=== PATIENT | female | born 1965 | race Asian ===

== ENCOUNTER 2025-05-18 09:17 | Emergency (ER) | payer OTHER ==
[~2025-05-18] VITALS: Ht 144.8 cm; Wt 55.3 kg
[2025-05-18 10:52] LABS: BASOPHILS ABSOLUTE AUTO 0.03 K/mm3 (0.00-0.23); BASOPHILS PERCENT AUTO 0 % (0-2); EOSINOPHILS ABSOLUTE AUTO 0.12 K/mm3 (0.00-0.68); EOSINOPHILS PERCENT AUTO 1 % (0-6); Hematocrit 42.2 % (33.0-51.0); Hemoglobin 15.3 g/dL (11.5-16.0); IMMATURE GRAN ABSOLUTE AUTO 0.05 K/mm3 (0.00-0.10); IMMATURE GRAN PERCENT AUTO 0 % (0-1); LYMPHOCYTES ABSOLUTE AUTO 1.60 K/mm3 (0.84-5.20); LYMPHOCYTES PERCENT AUTO 11 % (21-46); MONOCYTES ABSOLUTE AUTO 1.40 K/mm3 (0.16-1.47); MONOCYTES PERCENT AUTO 10 % (4-13); Mean Corpuscular HGB Conc 36.3 g/dL (31.5-36.5); Mean Corpuscular Volume 91 fL (80-100); NEUTROPHILS ABSOLUTE AUTO 11.06 K/mm3 (1.96-9.15); NEUTROPHILS PERCENT AUTO 78 % (41-73); NRBC ABSOLUTE 0.00 K/mm3 (0.00-0.02); NRBC Auto 0.0 /100 WBC (0.0-0.2); Platelet Count 150 K/mm3 (150-400); RDW Coefficient Variation 12.5 % (11.7-14.2); RDW Standard Deviation 41.8 fL (35.1-46.3)
[2025-05-18 11:16] LABS: Alanine Aminotransfer (ALT/SGP 27.0 U/L (12-78); Albumin, Blood 4.0 g/dL (3.4-5.0); Albumin/Globulin Ratio 1.0 (0.8-1.8); Anion Gap 11.0 mmol/L (3-11); Aspartate Aminotrans (AST/SGOT 27.0 U/L (12-37); Bilirubin, Total 1.5 mg/dL (0.1-1.0); Blood Urea Nitrogen 12.0 mg/dL (8-24); CO2, Blood 25.0 mmol/L (21-32); Calcium, Blood 8.8 mg/dL (8.5-10.1); Chloride, Blood 104.0 mmol/L (98-108); Creatinine, Blood 0.86 mg/dL (0.40-1.00); Globulin, Blood 4.2 g/dL (2.2-4.0); Glucose, Blood 105.0 mg/dL (70-99); Potassium, Blood 3.7 mmol/L (3.5-5.5); Sodium, Blood 136.0 mmol/L (136-145); Total Protein, Blood 8.2 g/dL (6.4-8.2)
[2025-05-18] MEDS ORDERED: Ketorolac Tromethamine 15mg Vial IV ONE (13:00)
[2025-05-18 15:00] VITALS: BP 111/78
== END 2025-05-18 15:15 | disposition home or self-care (01) ==
LOC: ER 09:17
PROVIDERS: Student in an Organized Health Care Education/Training Program
DX: R07.89 Other chest pain (principal); Z88.5 Allergy status to narcotic agent
CPT/HCPCS: 71046; 71260; 80053; 83690; 85025; 93005; 93010; 99285-25; A9270; Q9967

== ENCOUNTER 2025-05-20 20:30 | Inpatient (IN) | payer OTHER ==
[~2025-05-20] VITALS: Ht 144.8 cm; Wt 57.1 kg
[2025-05-20 21:24] LABS: BASOPHILS ABSOLUTE AUTO 0.04 K/mm3 (0.00-0.23); BASOPHILS PERCENT AUTO 0 % (0-2); EOSINOPHILS ABSOLUTE AUTO 0.10 K/mm3 (0.00-0.68); EOSINOPHILS PERCENT AUTO 1 % (0-6); Hematocrit 34.2 % (33.0-51.0); Hemoglobin 12.5 g/dL (11.5-16.0); IMMATURE GRAN ABSOLUTE AUTO 0.70 K/mm3 (0.00-0.10); IMMATURE GRAN PERCENT AUTO 4 % (0-1); LYMPHOCYTES ABSOLUTE AUTO 1.50 K/mm3 (0.84-5.20); LYMPHOCYTES PERCENT AUTO 8 % (21-46); MONOCYTES ABSOLUTE AUTO 1.01 K/mm3 (0.16-1.47); MONOCYTES PERCENT AUTO 6 % (4-13); Mean Corpuscular HGB Conc 36.5 g/dL (31.5-36.5); Mean Corpuscular Volume 91 fL (80-100); NEUTROPHILS ABSOLUTE AUTO 15.03 K/mm3 (1.96-9.15); NEUTROPHILS PERCENT AUTO 82 % (41-73); NRBC ABSOLUTE 0.00 K/mm3 (0.00-0.02); NRBC Auto 0.0 /100 WBC (0.0-0.2); Platelet Count 130 K/mm3 (150-400); RDW Coefficient Variation 12.4 % (11.7-14.2); RDW Standard Deviation 41.4 fL (35.1-46.3)
[2025-05-20 21:47] LABS: Alanine Aminotransfer (ALT/SGP 90.0 U/L (12-78); Albumin, Blood 2.7 g/dL (3.4-5.0); Albumin/Globulin Ratio 0.7 (0.8-1.8); Anion Gap 10.0 mmol/L (3-11); Aspartate Aminotrans (AST/SGOT 86.0 U/L (12-37); Bilirubin, Total 2.7 mg/dL (0.1-1.0); Blood Urea Nitrogen 11.0 mg/dL (8-24); CO2, Blood 24.0 mmol/L (21-32); Calcium, Blood 8.3 mg/dL (8.5-10.1); Chloride, Blood 99.0 mmol/L (98-108); Creatinine, Blood 0.81 mg/dL (0.40-1.00); Globulin, Blood 4.0 g/dL (2.2-4.0); Glucose, Blood 102.0 mg/dL (70-99); Potassium, Blood 3.4 mmol/L (3.5-5.5); Sodium, Blood 130.0 mmol/L (136-145); Total Protein, Blood 6.7 g/dL (6.4-8.2)
[2025-05-20] MEDS ORDERED: NS 1,000 ML IV SCH (21:55)
[2025-05-20] MEDS ORDERED: Piperacillin/Tazobactam Sod 4.5 GM in NS 100 ML IV ONE (21:55)
[2025-05-20] MEDS ORDERED: Vancomycin (Pharmacy Consult) IV PRN (21:55)
[2025-05-20 21:59] LABS: Source, Urine Voided
[2025-05-20 22:16] LABS: Bilirubin, Urine Neg (Neg); Glucose Qualitative, Urine Neg (Neg); Ketones, Urine 2+ (Neg); Leukocyte Esterase, Urine 1+ (Neg); Protein, Urine 2+ (Neg); Specific Gravity, Urine 1.010 (1.003-1.022); Urobilinogen, Urine NORM (Normal)
[2025-05-20] MEDS ORDERED: FentaNYL Citrate 50 MCG/ML 2 ML Injection IV ONE (22:20)
[2025-05-20 22:37] LABS: Color, Urine Yellow (P-Yellow)
[2025-05-20 22:38] LABS: Red Blood Cells, Urine 0-2 /hpf (0-2)
[2025-05-21 01:41] LABS: Hematocrit 32.5 % (33.0-51.0); Hemoglobin 11.9 g/dL (11.5-16.0)
[2025-05-21] MEDS ORDERED: Ondansetron HCl 2 MG / ML 2ML Vial IV PRN (01:45)
[2025-05-21] MEDS ORDERED: Naloxone HCl 0.4MG / ML 1ML Vial IV PRN (01:45)
[2025-05-21] MEDS ORDERED: FentaNYL Citrate 50 MCG/ML 2 ML Injection IV PRN (01:45)
[2025-05-21] MEDS ORDERED: FLU VACC TS2025-26(6MOS UP)/PF 45 MCG/0.5 ML SYRINGE IM SCH (01:45)
[2025-05-21] MEDS ORDERED: Vancomycin (Pharmacy Consult) IV SCH (01:45)
[2025-05-21 02:06] LABS: Prothrombin Time Results 12.8 Sec (9.7-11.5)
[2025-05-21 04:20] VITALS: BP 116/85
[2025-05-21 05:13] LABS: Hematocrit 35.7 % (33.0-51.0); Hemoglobin 12.8 g/dL (11.5-16.0); Mean Corpuscular HGB Conc 35.9 g/dL (31.5-36.5); Mean Corpuscular Volume 92 fL (80-100); NRBC ABSOLUTE 0.00 K/mm3 (0.00-0.02); NRBC Auto 0.0 /100 WBC (0.0-0.2); Platelet Count 131 K/mm3 (150-400); RDW Coefficient Variation 12.6 % (11.7-14.2); RDW Standard Deviation 42.0 fL (35.1-46.3)
[2025-05-21 05:40] LABS: BAND PERCENT MAN 19 % (0-8); BASOPHILS ABSOLUTE MAN 0.00 K/mm3 (0.00-0.23); BASOPHILS PERCENT MAN 0 % (0-2); EOSINOPHILS ABSOLUTE MAN 0.15 K/mm3 (0.00-0.68); EOSINOPHILS PERCENT MAN 1 % (0-6); LYMPHOCYTES ABSOLUTE MAN 0.31 K/mm3 (0.84-5.20); LYMPHOCYTES PERCENT MAN 2 % (21-46); MONOCYTES ABSOLUTE MAN 0.47 K/mm3 (0.16-1.47); MONOCYTES PERCENT MAN 3 % (4-13); MYELOCYTE ABSOLUTE MAN 0.15 K/mm3 (0.00-0.00); MYELOCYTE PERCENT MAN 1 % (0-0); NEUTROPHILS ABSOLUTE MAN 14.70 K/mm3 (1.96-9.15); SEG NEUTROPHILS PERCENT MAN 74 % (41-73)
[2025-05-21 05:43] LABS: Alanine Aminotransfer (ALT/SGP 99.0 U/L (12-78); Albumin, Blood 2.7 g/dL (3.4-5.0); Albumin/Globulin Ratio 0.6 (0.8-1.8); Anion Gap 11.0 mmol/L (3-11); Aspartate Aminotrans (AST/SGOT 89.0 U/L (12-37); Bilirubin, Total 2.9 mg/dL (0.1-1.0); Blood Urea Nitrogen 10.0 mg/dL (8-24); CO2, Blood 21.0 mmol/L (21-32); Calcium, Blood 8.3 mg/dL (8.5-10.1); Chloride, Blood 109.0 mmol/L (98-108); Creatinine, Blood 0.8 mg/dL (0.40-1.00); Globulin, Blood 4.2 g/dL (2.2-4.0); Glucose, Blood 100.0 mg/dL (70-99); Magnesium, Blood 2.1 mg/dL (1.6-2.4); Potassium, Blood 3.8 mmol/L (3.5-5.5); Sodium, Blood 137.0 mmol/L (136-145); Total Protein, Blood 6.9 g/dL (6.4-8.2)
[2025-05-21] MEDS ORDERED: Piperacillin/Tazobactam Sod 4.5 GM in NS 100 ML IV SCH (06:00)
--- NOTE | 2025-05-21 06:16 | NUR ---
SHIFT SUMMARY RECEIVED REPORT FROM KEY OPERATOR. PT TRANSFERRED TO UNIT AT APPROXIMATELY 0330. PT C/O ABD PAIN 09/04 UPON ARRIVAL. NO C/O CHEST PAIN OR PRESSURE. NO C/O SOB. SKIN ASSESSMENT COMPLETED WITH EMA DE JESUS. PT AOX4. SR ON TELE. SPO2 >92% ON RA. IV WITH POSITIVE BLOOD RETURN, FLUSHED WITH 10ML NS. FLUIDS RUNNING AT 100ML/HR. NO C/O PAIN AT IV SITE. MRI SCREENING FORM COMPLETED AND SENT. CALL LIGHT WITHIN REACH. PT ABLE TO MAKE ALL NEEDS KNOWN AND CALLS APPROPRIATELY FOR ASSISTANCE WHEN NEEDED. CHANTELL AU, AT BEDSIDE.
[2025-05-21 07:52] VITALS: BP 108/58
[2025-05-21] MEDS ORDERED: Lactobacil 2-S.Thermo-Bifido 1 1 Cap PO SCH (09:00)
[2025-05-21] MEDS ORDERED: Lidocaine 4% 1 Patch TOP PRN (10:10)
[2025-05-21 12:29] VITALS: BP 118/67
[2025-05-21 15:29] VITALS: BP 142/76
--- NOTE | 2025-05-21 18:10 | NUR ---
SHIFT SUMMARY PATIENT HAS BEEN AOX4 ALL SHIFT. SBP HAS BEEN STABLE 105-140 T/O SHIFT. HR HAS BEEN 90-110'S AND SINUS RHYTHM. O2 SATS >95% ON ROOM AIR. PATIENT IS A SBA TO THE BATHROOM. PREVIOUS REPORT OF BLOOD IN STOOL, HOWEVER NO BM ON THIS SHIFT. HAD A LIVER MRI DONE TODAY WITH RESULTS IN CHART. PATIENT WAS INITIALLY NPO, TALKED WITH PROVIDER AND CHANGED DIET ORDERS PER PROVIDER. DENIES CHEST PAIN/PRESSURE/SOB. TEMP HAS BEEN 99-100.8, PROVIDERS AWARE. RFA PIV IS PATENT AND INFUSING CURRENTLY. PLAN FOR CT SCAN TOMORROW WITH POSSIBLE PROCEDURE. PATIENT CAN DRINK WATER AND EAT LIGHLTY IN MORNING PER PROVIDER. PATIENT RESTING COMFORTABLY IN BED IN LOWEST POSITION, CALL LIGHT WITH IN REACH. FAMILY AT BEDSIDE.
[2025-05-21 19:49] VITALS: BP 106/64
[2025-05-22] VITALS (7 sets, daily range): BP systolic 105–128; BP diastolic 65–96
--- NOTE | 2025-05-22 06:41 | NUR ---
NOC SHIFT SUMMARY PT A+OX4 ABLE TO MAKE NEEDS KNOWN, AT BEDSIDE. PT IS VERY KIND AND COOPERATIVE WITH CARE. SHE IS INDEPENT IN THE ROOM SINCE NO LONGER BEING HOOKED TO IV FLUIDS. VSS. DENIES CHEST PAIN OR PRESSURE. RA SATTING >90%, DENIES SOB. STATES ABDOMEN PAIN HAS MUCH IMPROVED. SHE IS CURRENTLY FULL LIQUID DIET. NO ACUTE CHANGES OVER NIGHT. CARE CONTINUES, WILL REPORT TO ONCOMING RN.
[2025-05-22 10:46] LABS: Vancomycin, Trough 8.8 ug/mL (5.0-10.0)
[2025-05-22 11:13] LABS: BASOPHILS ABSOLUTE AUTO 0.04 K/mm3 (0.00-0.23); BASOPHILS PERCENT AUTO 0 % (0-2); EOSINOPHILS ABSOLUTE AUTO 0.05 K/mm3 (0.00-0.68); EOSINOPHILS PERCENT AUTO 0 % (0-6); Hematocrit 35.7 % (33.0-51.0); Hemoglobin 12.9 g/dL (11.5-16.0); IMMATURE GRAN ABSOLUTE AUTO 0.12 K/mm3 (0.00-0.10); IMMATURE GRAN PERCENT AUTO 1 % (0-1); LYMPHOCYTES ABSOLUTE AUTO 0.85 K/mm3 (0.84-5.20); LYMPHOCYTES PERCENT AUTO 6 % (21-46); MONOCYTES ABSOLUTE AUTO 1.53 K/mm3 (0.16-1.47); MONOCYTES PERCENT AUTO 10 % (4-13); Mean Corpuscular HGB Conc 36.1 g/dL (31.5-36.5); Mean Corpuscular Volume 91 fL (80-100); NEUTROPHILS ABSOLUTE AUTO 12.79 K/mm3 (1.96-9.15); NEUTROPHILS PERCENT AUTO 83 % (41-73); NRBC ABSOLUTE 0.00 K/mm3 (0.00-0.02); NRBC Auto 0.0 /100 WBC (0.0-0.2); Platelet Count 169 K/mm3 (150-400); RDW Coefficient Variation 13.0 % (11.7-14.2); RDW Standard Deviation 43.1 fL (35.1-46.3)
[2025-05-22 11:44] LABS: Alanine Aminotransfer (ALT/SGP 110.0 U/L (12-78); Albumin, Blood 2.6 g/dL (3.4-5.0); Albumin/Globulin Ratio 0.6 (0.8-1.8); Anion Gap 9.0 mmol/L (3-11); Aspartate Aminotrans (AST/SGOT 95.0 U/L (12-37); Bilirubin, Total 1.9 mg/dL (0.1-1.0); Blood Urea Nitrogen 10.0 mg/dL (8-24); CO2, Blood 21.0 mmol/L (21-32); Calcium, Blood 8.2 mg/dL (8.5-10.1); Chloride, Blood 110.0 mmol/L (98-108); Creatinine, Blood 0.83 mg/dL (0.40-1.00); Globulin, Blood 4.2 g/dL (2.2-4.0); Glucose, Blood 110.0 mg/dL (70-99); Potassium, Blood 3.3 mmol/L (3.5-5.5); Sodium, Blood 137.0 mmol/L (136-145); Total Protein, Blood 6.8 g/dL (6.4-8.2)
[2025-05-22] MEDS ORDERED: NS KCL 40 mEq 1,000 ML IV SCH (12:10)
[2025-05-22] MEDS ORDERED: NS 1,000 ML IV SCH (13:10)
--- NOTE | 2025-05-22 13:36 | NUR ---
ASSUMPTION OF CARE PATIENT AWAKE AND AOX4. SBP 100'S-110'S AND STABLE. MAP >65. HR 90-100 SR. O2 SAT >95% ON ROOM AIR. TEMP HAS BEEN BETWEEN 98-103. UPDATED PROVIDER. MEDICATED PER EMAR. PATIENT IS SBA TO BATHROOM DUE TO PAIN, SHE MOVES INDEPENDANTLY IN BED. NO BM NOTED ON SHIFT. NO RECTAL BLEEDING NOTED ON SHIFT. PATIENT DENIES SOB/CHEST PAIN/PRESSURE. PLAN FOR INERVENTIONAL RADIOLOGY LIVER PROCEDURE TODAY. PATIENT CURRENTLY NPO FOR PROCEDURE. PIV PATENT. PATIENT CURRENTLY IN SHOWER PER REQUEST.
[2025-05-22] MEDS ORDERED: NS 0 ML IV ONE ×2 (14:08→14:22)
[2025-05-22] MEDS ORDERED: Heparin Sodium 1000 Units/ML 10ML MDV ONE (14:09)
[2025-05-22] MEDS ORDERED: FentaNYL Citrate 50 MCG/ML 2 ML Injection ONE (14:22)
[2025-05-22] MEDS ORDERED: Midazolam HCl 1MG / ML 2ML Vial ONE (14:22)
--- NOTE | 2025-05-22 15:07 | NUR ---
Pt returned from the heart center at 1445. is at the bedside. Pt states she has some mild pain in her abdomen, and is also very hungry. States the abdominal ultrasound during the procedure increased her pain. IV fluids NS and KCl started at this time, per orders.
[2025-05-22 16:12] LABS: HEPATITIS A ANTIBODY, IGM Negative (Negative); HEPATITIS C AB CIA INTERP Negative (Negative); HEPATITIS C ANTIBODY CIA INDEX 0.03 IV
--- NOTE | 2025-05-22 16:56 | NUR ---
SHIFT SUMMARY PATIENT'S TEMP 98-99 DEGREES. PATIENT BACK IN ROOM, RESTING IN BED IN LOWEST POSITION WITH CALL LIGHT IN REACH. PATIENT HAS BEEN UPDATED ON CONDITION/AVAILABLE RESULTS SO FAR. SHE HAS NO FURTHER QUESTIONS. NO OTHER ACUTE CHANGES SINCE ASSMPTION OF CARE NOTE.
--- NOTE | 2025-05-22 20:00 | NUR ---
ASSUMED CARE OF PATIENT AT 1900. PATIENT A/O X 4, SPEAKING IN COMPELTE SENTENCES AND OBEYS COMMANDS. SINUS TACH 110s, BP STABLE. SATS >95% ON ROOM AIR. PATIENT BECAME ANXIOUS AFTER REPORT, STARTED HYPERVENTILATING AND COMPLAINING OF SOB. PATIENT REPORTS USING INHALER AT HOME BUT HAS NOT USED IT SINCE [place]MIS[place]. SATS MAINTAINED >98%, LUNG SOUNDS CLEAR T/O. PATIENT HYPERVENTILATION IMPROVED AFTER ENCOURAGING SLOW, DEEP BREATHS. CALL PLACED TO MD CARDONA, ORDERS PLACED FOR RESCUE INHALER AND ATARAX. PATIENT IS SBA TO BATHROOM FOR LINE MANAGEMENT, REPOSITIONS INDEPENDENTLY IN BED. PATIENT RESTING COMFORTABLY IN ROOM WITH FAMILY AT BEDSIDE. BED LOCKED IN LOWEST POSITION, CALL LIGHT WITHIN REACH.
[2025-05-22] MEDS ORDERED: Albuterol 2.5 MG/3 ML VIAL INH PRN (21:15)
[2025-05-22] MEDS ORDERED: Albuterol HFA200 ACT/6.7 GM INH INH PRN (21:20)
[2025-05-23] VITALS (7 sets, daily range): BP systolic 110–148; BP diastolic 69–83
--- NOTE | 2025-05-23 06:04 | NUR ---
SHIFT SUMMARY SEE PREVIOUS NOTE PATIENT REMAINS A/O X 4 T/O SHIFT. PATIENT USES CALL LIGHT APPROPRIATELY AND IS COOPERATIVE WITH CARE. SHE HAS BEEN NSR/ST, HR 90-110s, DENIES CHEST PAIN OR PRESSURE. ALL OTHER VSS. PATIENT DENIES RECURRENCE OF SOB OR ANXIETY SINCE INITIAL EVENT. PATIENT RESTING COMFORTABLY IN ROOM. BED LOCKED IN LOWEST POSITION AND CALL LIGHT IN REACH.
[2025-05-23 09:55] LABS: BASOPHILS ABSOLUTE AUTO 0.02 K/mm3 (0.00-0.23); BASOPHILS PERCENT AUTO 0 % (0-2); EOSINOPHILS ABSOLUTE AUTO 0.20 K/mm3 (0.00-0.68); EOSINOPHILS PERCENT AUTO 2 % (0-6); Hematocrit 29.4 % (33.0-51.0); Hemoglobin 10.6 g/dL (11.5-16.0); IMMATURE GRAN ABSOLUTE AUTO 0.21 K/mm3 (0.00-0.10); IMMATURE GRAN PERCENT AUTO 2 % (0-1); LYMPHOCYTES ABSOLUTE AUTO 0.96 K/mm3 (0.84-5.20); LYMPHOCYTES PERCENT AUTO 7 % (21-46); MONOCYTES ABSOLUTE AUTO 2.11 K/mm3 (0.16-1.47); MONOCYTES PERCENT AUTO 16 % (4-13); Mean Corpuscular HGB Conc 36.1 g/dL (31.5-36.5); Mean Corpuscular Volume 91 fL (80-100); NEUTROPHILS ABSOLUTE AUTO 10.15 K/mm3 (1.96-9.15); NEUTROPHILS PERCENT AUTO 74 % (41-73); NRBC ABSOLUTE 0.00 K/mm3 (0.00-0.02); NRBC Auto 0.0 /100 WBC (0.0-0.2); Platelet Count 160 K/mm3 (150-400); RDW Coefficient Variation 13.0 % (11.7-14.2); RDW Standard Deviation 43.0 fL (35.1-46.3)
--- NOTE | 2025-05-23 10:14 | NUR ---
ASSUMPTION OF CARE ASSUMED CARE OF PATIENT AT 0700 AFTER BEDSIDE SHIFT REPORT. PATIENT AWAKE AND AOX4. SBP 120'S MAP >65. HR SINUS 90-100'S. O2 SATS >95% ON RA. TEMP IS 98.8. PATIENT AMBULATES INDEPENDENTLY IN ROOM TO BATHROOM. NO BLOOD REPORTED IN STOOL OR URINE. RIGHT AC PIV IS PATENT. PATIENT REPORTS LESS PAIN IN ABDOMEN. PLAN FOR REPEAT LABS. IV ANTIBIOTICS FOR TODAY. PATIENT RESTING COMFORTABLY IN BED IN LOWEST POSITION, CALL LIGHT WITH IN REACH.
[2025-05-23 10:18] LABS: Alanine Aminotransfer (ALT/SGP 70.0 U/L (12-78); Albumin, Blood 1.9 g/dL (3.4-5.0); Albumin/Globulin Ratio 0.5 (0.8-1.8); Anion Gap 9.0 mmol/L (3-11); Aspartate Aminotrans (AST/SGOT 46.0 U/L (12-37); Bilirubin, Total 1.2 mg/dL (0.1-1.0); Blood Urea Nitrogen 8.0 mg/dL (8-24); CO2, Blood 20.0 mmol/L (21-32); Calcium, Blood 7.9 mg/dL (8.5-10.1); Chloride, Blood 117.0 mmol/L (98-108); Creatinine, Blood 0.71 mg/dL (0.40-1.00); Globulin, Blood 3.7 g/dL (2.2-4.0); Glucose, Blood 127.0 mg/dL (70-99); Potassium, Blood 3.5 mmol/L (3.5-5.5); Sodium, Blood 142.0 mmol/L (136-145); Total Protein, Blood 5.6 g/dL (6.4-8.2)
--- NOTE | 2025-05-23 18:08 | NUR ---
SHIFT SUMMARY. PATIENT'S TEMP INCREASED BRIEFLY. PROVIDER NOTIFIED. MEDICATED PER EMAR. PATIENT AND UP AND WALKING AROUND THE FLOOR TODAY WITH RN FOLLOWING CLOSE BY. PATIENT HAD BOUT OF ANXIOUSNESS, MEDICATED PER EMAR. NO OTHER ACUTE CHANGES SINCE ASSUMPTION OF CARE NOTE. PATIENT RESTING COMFORTABLY IN BED IN LOWEST POSITION WITH CALL LIGHT IN REACH AND FAMILY BEDSIDE.
[2025-05-24] VITALS (23 sets, daily range): BP systolic 100–169; BP diastolic 60–117
[2025-05-24 04:37] LABS: BASOPHILS ABSOLUTE AUTO 0.06 K/mm3 (0.00-0.23); BASOPHILS PERCENT AUTO 0 % (0-2); EOSINOPHILS ABSOLUTE AUTO 0.31 K/mm3 (0.00-0.68); EOSINOPHILS PERCENT AUTO 2 % (0-6); Hematocrit 28.6 % (33.0-51.0); Hemoglobin 10.4 g/dL (11.5-16.0); IMMATURE GRAN ABSOLUTE AUTO 0.34 K/mm3 (0.00-0.10); IMMATURE GRAN PERCENT AUTO 2 % (0-1); LYMPHOCYTES ABSOLUTE AUTO 1.50 K/mm3 (0.84-5.20); LYMPHOCYTES PERCENT AUTO 11 % (21-46); MONOCYTES ABSOLUTE AUTO 2.09 K/mm3 (0.16-1.47); MONOCYTES PERCENT AUTO 15 % (4-13); Mean Corpuscular HGB Conc 36.4 g/dL (31.5-36.5); Mean Corpuscular Volume 89 fL (80-100); NEUTROPHILS ABSOLUTE AUTO 9.91 K/mm3 (1.96-9.15); NEUTROPHILS PERCENT AUTO 70 % (41-73); NRBC ABSOLUTE 0.00 K/mm3 (0.00-0.02); NRBC Auto 0.0 /100 WBC (0.0-0.2); Platelet Count 177 K/mm3 (150-400); RDW Coefficient Variation 13.3 % (11.7-14.2); RDW Standard Deviation 44.1 fL (35.1-46.3)
[2025-05-24 05:08] LABS: Alanine Aminotransfer (ALT/SGP 53.0 U/L (12-78); Albumin, Blood 1.9 g/dL (3.4-5.0); Albumin/Globulin Ratio 0.5 (0.8-1.8); Anion Gap 10.0 mmol/L (3-11); Aspartate Aminotrans (AST/SGOT 29.0 U/L (12-37); Bilirubin, Total 0.9 mg/dL (0.1-1.0); Blood Urea Nitrogen 10.0 mg/dL (8-24); CO2, Blood 20.0 mmol/L (21-32); Calcium, Blood 8.3 mg/dL (8.5-10.1); Chloride, Blood 114.0 mmol/L (98-108); Creatinine, Blood 0.8 mg/dL (0.40-1.00); Globulin, Blood 4.0 g/dL (2.2-4.0); Glucose, Blood 94.0 mg/dL (70-99); Potassium, Blood 3.6 mmol/L (3.5-5.5); Sodium, Blood 140.0 mmol/L (136-145); Total Protein, Blood 5.9 g/dL (6.4-8.2)
--- NOTE | 2025-05-24 05:35 | NUR ---
SHIFT SUMMARY PT A&O X4, ANXIOUS AT TIMES, COOPERATIVE TO CARE. HR IN THE 70'S-110'S, SR. SH DENIES ANY CP/PRESSURE, NUMB/TINGLING, SBP STABLE. Sp02 >92% ON RA, SHE DENIES ANY SOB. OT INTERMITTENT ABD/BACK PAIN, MEDICATING PER EMAR. P DID HAVE ONE EPISODE T/O NIGHT WHEN SHE WAS HAVING 5/10 BACK PAIN AND BECAME ANXIOUS. PT RR IN THE MID 20'S, CHILLS/SHAKEY, PTS TEMP WAS 98.2 AT THIS TIME, MEDICATED PT PER EMAR. PT REMAINED AFEBRILE T/O NIGHT. MD AT BEDSIDE DURING THE NIGHT CHECKING IN ON PT. PT TO GET REPEAT IMAGINING IN A FEW DAYS AND DISCUSS PLAN OF CARE AT THAT TIME. PT RESTIN IN BED AT THIS TIME. CALL LIGHT IN REACH. WILL MONITORPT AND REPORT TO ONCOMING RN.
[2025-05-24 11:03] LABS: Stool Occult Blood Guaiac 1 Neg (Neg)
[2025-05-24 11:29] LABS: Hematocrit 30.8 % (33.0-51.0); Hemoglobin 11.2 g/dL (11.5-16.0)
[2025-05-24] MEDS ORDERED: Sod Ferric Gluc Complx/Sucrose 125 MG in NS 100 ML IV SCH (11:29)
[2025-05-24 11:48] LABS: Ferritin, Serum 830.0 ng/mL (8-252); Total Iron Binding Capacity 194.0 ug/dL (250-450)
[2025-05-24 12:13] LABS: Campylobacter Sp Not Detected (NOT DETECT); E. Coli O157 Not Detected (NOT DETECT); Enteroaggregative E. coli-EAEC Not Detected (NOT DETECT); Enteropathogenic E. coli-EPEC Not Detected (NOT DETECT); Enterotoxigenic E. coli-ETEC Not Detected (NOT DETECT); Salmonella Sp Not Detected (NOT DETECT); Shiga Toxin-prod E. coli-STEC Not Detected (NOT DETECT); Shigella/Enteroin E. coli-EIEC Not Detected (NOT DETECT); Vibrio Sp Not Detected (NOT DETECT)
[2025-05-24] MEDS ORDERED: OMEP20ER PO (16:27)
[2025-05-24] MEDS ORDERED: Milk Thistle175 M1 PO (16:27)
[2025-05-24] MEDS ORDERED: MULVITA PO (16:27)
[2025-05-24] MEDS ORDERED: TOCO1000 PO (16:28)
--- NOTE | 2025-05-24 18:28 | NUR ---
SHIFT SUMMARY PT ALERT, ORIENTED X4; CALM AND COOPERATIVE WITH CARE. PT UP IN CHAIR THIS EVENING. IND IN ROOM. THIS AM PT AND SPOUSE REPORTING BLOODY STOOL, RENALDO/DARK RED, CLOTS NOTED. PT NOTED TO BE DRINKING BEET JUICE FOR BREAKFAST. DISCUSSED WITH DR ROCHA AND DR POLLOCK, ORDERS FOR H&H, IRON PANEL, GUIAC AND GI PANEL; RESULTS DISCUSSED WITH DRs. PLAN FOR COLONOSCOPY THIS EVENING, STARTED BOWEL PREP AT APPROX [id number] COMPLETED AT 1430; PT MOST RECENT STOOL CLEAR YELLOW, NO FLECKS NOTED, DR POLLOCK AWARE, CURRENTLY NPO FOR SCOPE. TELE SINUS 80-100'S AT REST, 120-130'S WITH AMBULATION, BP ELEVATED THIS AM, TRENDING DOWN THIS EVENING. SPO2 >90% ON RA, BREATHING EVEN AND UNLABORED, LS CLEAR. ABD SOFT, NONTENDER, +BT. TRACE EDEMA NOTED BLE. PT REPORTING HEADACHE THIS AM, X1 TYLENOL. DENIES CHEST PAIN/PRESSURE, SOB, NASUEA, DIZZINESS AND NUMB/TINGLING. OTHER VSS. CALL LIGHT WITHIN REACH.
--- NOTE | 2025-05-24 19:31 | NUR ---
INTO SDS VIA WHEELCHAIR. PT REPORTS 3/10 L QUADRANT PAIN. HISTORY AND ALLERGIES REVIEWED. LUNGS CLEAR. SATS>90% ON RA. NPO STATUS CONFIRMED. BOWEL PREP CONFIRMED.
--- NOTE | 2025-05-24 19:41 | NUR ---
05/24/251940 Tia Engle CONFIRMED AND REVIEWED H&P, MEDCICATIONS, ALLERGIES, MEDICAL HISTORY, RESPIRATORY HISTORY, VITAL SIGNS, 3-LEAD EKG, CONSENTS, AND PHYSICIAN ORDERS. PATIENT CONFIRMS NPO STATUS AND AGREES WITH SCHEDULED PROCEDURE. MONITOR INTACT WITH CONTINUOUS PULSE OXIMETRY, CAPNOGRAPHY, 3-LEAD EKG, INTERMITTENT BP. SUPPLEMENTAL O2 TO BE TITRATED THROUGHOUT PROCEDURE TO MAINTAIN O2 SATURATION ABOVE 90%. PATIENT DETERMINED TO BE ASA APPROPRIATE FOR PROPOFOL SEDATION PRIOR TO START OF PROCEDURE BY . MALLAMPATI CLASS 2 AIRWAY: COMPLETE VISUALIZATION OF THE UVULA.
--- NOTE | 2025-05-24 20:27 | NUR ---
ASSUMPTION OF CARE PT TO OR FOR SCOPE AT BEGINNING OF SHIFT. PT ARRIVED BACK TO PCU 15 AT 2014. PT A&O X4, ABLE TO MAKE NEEDS KNOWN. VSS, AFEBRILE. SHE DENIES PAIN AT THIS TIME. DR. POLLOCK TO COME GIVE UPDATE TO FAMILY. PT RESTING IN BED, CALL LIGHT IN REACH, BREATHING IS EVEN AND UNLABORED.
[2025-05-24] MEDS ORDERED: LORazepam 2 MG/ML 1ML Injection IV PRN (22:20)
--- NOTE | 2025-05-24 22:26 | NUR ---
UPDATE PT NOTIFIED THIS NURSE THAT SHE IS EXPERIENCING CHILLS AND TREMORS. PT HR 130'S-150'S AT THAT TIME. BP TAKEN AT 2212 AND WAS 169/117. PT STATES THAT ATARAX HELPS WITH THESE SYMPTOMS, ADMINISTERED PER EMAR. PT HR CONTINUED TO BE 130S-140S. SPOKE WITH DR. TONEY REGARDING THIS, AWAITING ORDERS AT THIS TIME. CARE CONTINUES.
--- NOTE | 2025-05-24 23:14 | NUR ---
UPDATE PT REPORTS FEELING BETTER AFTER TAKING ATARAX. HR NOW 110S, BP 135/74. ALTHOUGH TEMP IS ELEVATED AT 104.2. PT STATES THIS IS BOTHERING HER AND SHE IS UNABLE TO SLEEP. PER DR. ROCHA'S NOTE, OKAY TO TAKE TYLENOL IF PT IS NOT ABLE TO TOLERATE FEVER. ADMINISTERED TYLENOL PER EMAR. PT IS RESTING QUIETLY IN BED, CALL LIGHT IN REACH, BREATHING IS EVEN AND UNLABORED. CARE CONTINUES.
[2025-05-25 04:08] VITALS: BP 110/62
[2025-05-25 04:16] LABS: BASOPHILS ABSOLUTE AUTO 0.04 K/mm3 (0.00-0.23); BASOPHILS PERCENT AUTO 0 % (0-2); EOSINOPHILS ABSOLUTE AUTO 0.23 K/mm3 (0.00-0.68); EOSINOPHILS PERCENT AUTO 2 % (0-6); Hematocrit 28.0 % (33.0-51.0); Hemoglobin 10.2 g/dL (11.5-16.0); Mean Corpuscular HGB Conc 36.4 g/dL (31.5-36.5); Mean Corpuscular Volume 91 fL (80-100); NRBC ABSOLUTE 0.00 K/mm3 (0.00-0.02); NRBC Auto 0.0 /100 WBC (0.0-0.2); Platelet Count 220 K/mm3 (150-400); RDW Coefficient Variation 13.7 % (11.7-14.2); RDW Standard Deviation 45.5 fL (35.1-46.3)
[2025-05-25 04:17] LABS: IMMATURE GRAN ABSOLUTE AUTO 0.43 K/mm3 (0.00-0.10); IMMATURE GRAN PERCENT AUTO 3 % (0-1); LYMPHOCYTES ABSOLUTE AUTO 1.83 K/mm3 (0.84-5.20); LYMPHOCYTES PERCENT AUTO 13 % (21-46); MONOCYTES ABSOLUTE AUTO 1.60 K/mm3 (0.16-1.47); MONOCYTES PERCENT AUTO 11 % (4-13); NEUTROPHILS ABSOLUTE AUTO 10.19 K/mm3 (1.96-9.15); NEUTROPHILS PERCENT AUTO 71 % (41-73)
[2025-05-25 04:36] LABS: Alanine Aminotransfer (ALT/SGP 48.0 U/L (12-78); Albumin, Blood 1.9 g/dL (3.4-5.0); Albumin/Globulin Ratio 0.5 (0.8-1.8); Anion Gap 8.0 mmol/L (3-11); Aspartate Aminotrans (AST/SGOT 36.0 U/L (12-37); Bilirubin, Total 1.1 mg/dL (0.1-1.0); Blood Urea Nitrogen 11.0 mg/dL (8-24); CO2, Blood 22.0 mmol/L (21-32); Calcium, Blood 8.0 mg/dL (8.5-10.1); Chloride, Blood 112.0 mmol/L (98-108); Creatinine, Blood 0.82 mg/dL (0.40-1.00); Globulin, Blood 4.0 g/dL (2.2-4.0); Glucose, Blood 102.0 mg/dL (70-99); Potassium, Blood 4.0 mmol/L (3.5-5.5); Sodium, Blood 138.0 mmol/L (136-145); Total Protein, Blood 5.9 g/dL (6.4-8.2)
--- NOTE | 2025-05-25 05:30 | NUR ---
SHIFT SUMMARY PT AO X4, ABLE TO MAKE NEEDS KNOWN. VSS, AFEBRILE AT THIS TIME. BP STABLE. SPO2 >92% ON RA. SHE DENIES SOB OR CP. REPORT OF SOME ABDOMINAL PAIN, MEDICATED PER EMAR WITH LIDOCAINE PATCH. TELE SHOWS SR 80S. PT STATES THAT SHE IS NO LONGER EXPERIENCING CHILLS, FEVER OR TREMORS. NO EPISODES OF BLOODY STOOL THIS SHIFT. SHE IS INDEPENDENT IN THE ROOM. PT IS RESTING IN BED, AT BEDSIDE, CALL LIGHT IN REACH, BREATHING IS EVEN AND UNLABORED.
[2025-05-25 08:12] VITALS: BP 121/82
--- NOTE | 2025-05-25 08:43 | NUR ---
am note this rn assumed care at 0700. vital signs stable. tele sinus rhythm 80s. patient is alert and oriented x4. neuro is intact. perrla. patient denies pain, chest pain/pressure or shortness of breath. patient lung sounds clear throughout. patient abd mild distended and active bowel tones. patient skin is clean dry and intact. see shift assessment for further detials. plan of care discussed with patient and . plan of care is up to date.
[2025-05-25 11:15] VITALS: BP 99/66
[2025-05-25] MEDS ORDERED: CefTRIAXone Sodium 2,000 MG in NS 100 ML IV SCH (14:00)
[2025-05-25 15:06] VITALS: BP 132/75
--- NOTE | 2025-05-25 16:30 | NUR ---
shift summary patient had a shower today and linen change. patient made medical status no tele. patient independent in the rom with assistance of family and friends. patient calls when family or friends no in the room. no acute changes this shift. plan remains up to date
--- NOTE | 2025-05-25 17:44 | NUR ---
report to medical floor rn this rn gave report to medical floor rn and patient will be moving to room [id number]
[2025-05-25 17:59] VITALS: BP 120/78
[2025-05-25 19:59] VITALS: BP 115/78
[2025-05-26 04:51] VITALS: BP 128/77
--- NOTE | 2025-05-26 05:03 | NUR ---
Shift Summary: AOx4 speech clear and able to make all needs known; denies acute pain/discomfort, she does verbalizes concerns about the growth in her liver and hopes that it gets resolved soon. BM x1 and specimen for OP collected & sent to lab. She is ambulating independently, continent of B B&B She had a temp of 100.2 @ 0440 & Tylenol 1 gm admin as ordered PRN. Pt. resting at this time, her at her bedside all the time, and is aware of pt's condition
[2025-05-26 08:02] VITALS: BP 107/82
[2025-05-26] MEDS ORDERED: NS 250 ML IV PRN (11:45)
[2025-05-26 13:13] LABS: BASOPHILS ABSOLUTE AUTO 0.04 K/mm3 (0.00-0.23); BASOPHILS PERCENT AUTO 0 % (0-2); EOSINOPHILS ABSOLUTE AUTO 0.21 K/mm3 (0.00-0.68); EOSINOPHILS PERCENT AUTO 2 % (0-6); Hematocrit 31.8 % (33.0-51.0); Hemoglobin 11.2 g/dL (11.5-16.0); IMMATURE GRAN ABSOLUTE AUTO 0.55 K/mm3 (0.00-0.10); IMMATURE GRAN PERCENT AUTO 4 % (0-1); LYMPHOCYTES ABSOLUTE AUTO 2.45 K/mm3 (0.84-5.20); LYMPHOCYTES PERCENT AUTO 18 % (21-46); MONOCYTES ABSOLUTE AUTO 0.75 K/mm3 (0.16-1.47); MONOCYTES PERCENT AUTO 6 % (4-13); Mean Corpuscular HGB Conc 35.2 g/dL (31.5-36.5); Mean Corpuscular Volume 92 fL (80-100); NEUTROPHILS ABSOLUTE AUTO 9.44 K/mm3 (1.96-9.15); NEUTROPHILS PERCENT AUTO 70 % (41-73); NRBC ABSOLUTE 0.02 K/mm3 (0.00-0.02); NRBC Auto 0.1 /100 WBC (0.0-0.2); Platelet Count 269 K/mm3 (150-400); RDW Coefficient Variation 14.0 % (11.7-14.2); RDW Standard Deviation 47.5 fL (35.1-46.3)
[2025-05-26 13:32] LABS: Alanine Aminotransfer (ALT/SGP 43.0 U/L (12-78); Albumin, Blood 2.2 g/dL (3.4-5.0); Albumin/Globulin Ratio 0.5 (0.8-1.8); Anion Gap 10.0 mmol/L (3-11); Aspartate Aminotrans (AST/SGOT 27.0 U/L (12-37); Bilirubin, Total 0.6 mg/dL (0.1-1.0); Blood Urea Nitrogen 8.0 mg/dL (8-24); CO2, Blood 23.0 mmol/L (21-32); Calcium, Blood 8.6 mg/dL (8.5-10.1); Chloride, Blood 110.0 mmol/L (98-108); Creatinine, Blood 0.6 mg/dL (0.40-1.00); Globulin, Blood 4.8 g/dL (2.2-4.0); Glucose, Blood 109.0 mg/dL (70-99); Potassium, Blood 3.7 mmol/L (3.5-5.5); Sodium, Blood 139.0 mmol/L (136-145); Total Protein, Blood 7.0 g/dL (6.4-8.2)
--- NOTE | 2025-05-26 18:14 | NUR ---
END OF SHIFT NOTE PATIENT RESTING IN BED. A&O4, ABLE TO MAKE NEEDS KNOWN. FAMILY IN MOST OF THE DAY. DR POLLOCK STATED NOT TO TREAT FEVERS UNLESS PATIENT IS FEELING SYMPTOMATIC, OR IF FEVER IS OVER 102. LIDOCAINE PATCH IN PLACE ON LEFT ABDOMIN, SOME PAIN/DISCOMFORT REPORTED, DENIED NEED FOR PAIN MEDICATION. NO OTHER CONCERNS FOR THIS SHIFT.
[2025-05-26 20:05] VITALS: BP 125/77
--- NOTE | 2025-05-27 04:28 | NUR ---
Shift Summary: AOx4 speech clear & in good spirits, denies pain/discomfort, no S/S GI distress in r/t liver mass reported. OOB ond independently ambulating and with ADLs, is at bedside at all times & is aware of the pt's general condition, calorie & fluid intake adequate, continent of (B) B&B, no BM reported this shift, new IV line started in LFA & pt. tolerated procedure well. She is stable & resting comfortably @ this time.
[2025-05-27 04:52] VITALS: BP 111/65
[2025-05-27 07:37] VITALS: BP 123/76
[2025-05-27 13:11] LABS: BASOPHILS ABSOLUTE AUTO 0.05 K/mm3 (0.00-0.23); BASOPHILS PERCENT AUTO 0 % (0-2); EOSINOPHILS ABSOLUTE AUTO 0.13 K/mm3 (0.00-0.68); EOSINOPHILS PERCENT AUTO 1 % (0-6); Hematocrit 32.1 % (33.0-51.0); Hemoglobin 11.1 g/dL (11.5-16.0); IMMATURE GRAN ABSOLUTE AUTO 0.72 K/mm3 (0.00-0.10); IMMATURE GRAN PERCENT AUTO 5 % (0-1); LYMPHOCYTES ABSOLUTE AUTO 2.14 K/mm3 (0.84-5.20); LYMPHOCYTES PERCENT AUTO 14 % (21-46); MONOCYTES ABSOLUTE AUTO 0.88 K/mm3 (0.16-1.47); MONOCYTES PERCENT AUTO 6 % (4-13); Mean Corpuscular HGB Conc 34.6 g/dL (31.5-36.5); Mean Corpuscular Volume 94 fL (80-100); NEUTROPHILS ABSOLUTE AUTO 11.92 K/mm3 (1.96-9.15); NEUTROPHILS PERCENT AUTO 75 % (41-73); NRBC ABSOLUTE 0.00 K/mm3 (0.00-0.02); NRBC Auto 0.0 /100 WBC (0.0-0.2); Platelet Count 335 K/mm3 (150-400); RDW Coefficient Variation 14.1 % (11.7-14.2); RDW Standard Deviation 47.7 fL (35.1-46.3)
[2025-05-27 13:26] LABS: Alanine Aminotransfer (ALT/SGP 37.0 U/L (12-78); Albumin, Blood 2.6 g/dL (3.4-5.0); Albumin/Globulin Ratio 0.5 (0.8-1.8); Anion Gap 11.0 mmol/L (3-11); Aspartate Aminotrans (AST/SGOT 22.0 U/L (12-37); Bilirubin, Total 0.7 mg/dL (0.1-1.0); Blood Urea Nitrogen 8.0 mg/dL (8-24); CO2, Blood 21.0 mmol/L (21-32); Calcium, Blood 8.6 mg/dL (8.5-10.1); Chloride, Blood 107.0 mmol/L (98-108); Creatinine, Blood 0.66 mg/dL (0.40-1.00); Globulin, Blood 4.9 g/dL (2.2-4.0); Glucose, Blood 109.0 mg/dL (70-99); Potassium, Blood 3.7 mmol/L (3.5-5.5); Sodium, Blood 135.0 mmol/L (136-145); Total Protein, Blood 7.5 g/dL (6.4-8.2)
[2025-05-27 15:26] VITALS: BP 131/74
--- NOTE | 2025-05-27 18:17 | NUR ---
END OF SHIFT NOTE PATIENT RESTING IN BED. A&O4, ABLE TO MAKE NEEDS KNOWN. FAMILY AT BEDSIDE. PATIENT SHOWERED TODAY, AND WALKED THE HALLS WITH FAMILY. IRON AND ABX INFUSED TODAY, PER ORDER. NEW IV PLACED. PATIENT DENIED NEEDS OR QUESTIONS. NO OTHER CONCERNS FOR THIS SHIFT.
[2025-05-27 20:45] VITALS: BP 120/68
--- NOTE | 2025-05-28 05:18 | NUR ---
SHIFT SUMMARY PATIENT IS ALERT AND ORIENTED. PATIENT HAS HAD NO ACUTE EVENTS THIS SHIFT. VITAL SIGNS REVIEWED. PATIENT HAS HAD FAMILY AT BEDSIDE ALL SHIFT. PATIENT HAS HAD SLIGHT TEMPERATURE. LIDOCAINE PATCH PLACED ON ABD REQUESTED. PATIENT HAS NO OTHER COMPLAINTS OF PAIN, NAUSEA, VOMITTING OR SOB THIS SHIFT. BED IN LOCKED AND LOWEST POSITION. CALL LIGHT IN PLACE.
[2025-05-28 05:50] VITALS: BP 105/69
[2025-05-28 07:30] VITALS: BP 94/56
[2025-05-28 11:31] VITALS: BP 108/74
[2025-05-28 12:58] LABS: BASOPHILS ABSOLUTE AUTO 0.05 K/mm3 (0.00-0.23); BASOPHILS PERCENT AUTO 0 % (0-2); EOSINOPHILS ABSOLUTE AUTO 0.16 K/mm3 (0.00-0.68); EOSINOPHILS PERCENT AUTO 1 % (0-6); Hematocrit 34.6 % (33.0-51.0); Hemoglobin 12.0 g/dL (11.5-16.0); IMMATURE GRAN ABSOLUTE AUTO 0.77 K/mm3 (0.00-0.10); IMMATURE GRAN PERCENT AUTO 5 % (0-1); LYMPHOCYTES ABSOLUTE AUTO 2.40 K/mm3 (0.84-5.20); LYMPHOCYTES PERCENT AUTO 15 % (21-46); MONOCYTES ABSOLUTE AUTO 0.85 K/mm3 (0.16-1.47); MONOCYTES PERCENT AUTO 5 % (4-13); Mean Corpuscular HGB Conc 34.7 g/dL (31.5-36.5); Mean Corpuscular Volume 95 fL (80-100); NEUTROPHILS ABSOLUTE AUTO 11.68 K/mm3 (1.96-9.15); NEUTROPHILS PERCENT AUTO 74 % (41-73); NRBC ABSOLUTE 0.00 K/mm3 (0.00-0.02); NRBC Auto 0.0 /100 WBC (0.0-0.2); Platelet Count 419 K/mm3 (150-400); RDW Coefficient Variation 14.2 % (11.7-14.2); RDW Standard Deviation 48.2 fL (35.1-46.3)
[2025-05-28 14:18] LABS: Alanine Aminotransfer (ALT/SGP 36.0 U/L (12-78); Albumin, Blood 2.8 g/dL (3.4-5.0); Albumin/Globulin Ratio 0.5 (0.8-1.8); Anion Gap 13.0 mmol/L (3-11); Aspartate Aminotrans (AST/SGOT 28.0 U/L (12-37); Bilirubin, Total 0.6 mg/dL (0.1-1.0); Blood Urea Nitrogen 10.0 mg/dL (8-24); CO2, Blood 21.0 mmol/L (21-32); Calcium, Blood 8.9 mg/dL (8.5-10.1); Chloride, Blood 105.0 mmol/L (98-108); Creatinine, Blood 0.66 mg/dL (0.40-1.00); Globulin, Blood 5.4 g/dL (2.2-4.0); Glucose, Blood 94.0 mg/dL (70-99); Potassium, Blood 3.8 mmol/L (3.5-5.5); Sodium, Blood 135.0 mmol/L (136-145); Total Protein, Blood 8.2 g/dL (6.4-8.2)
[2025-05-28] MEDS ORDERED: MetroNIDAZOLE 500MG/NS 100 ml 100 ML IV SCH (14:39)
[2025-05-28 15:52] VITALS: BP 108/73
--- NOTE | 2025-05-28 16:10 | NUR ---
SHIFT SUMMARY PT AOX4, COOPERATIVE, ABLE TO MAKE NEEDS KNOWN. PT TOLERATING MEDICATIONS, ON ROOM AIR. STILL ON ISOLATION FOR CDIFF. ULTRASOUND PERFORMED TODAY. PT AND FAMILY IN GOOD SPIRITS ABOUT RESULTS. PT IND IN ROOM. BED IN LOWEST POSITION, CALL LIGHT WITHIN REACH.
[2025-05-28 19:27] VITALS: BP 116/66
[2025-05-29 05:19] VITALS: BP 111/65
--- NOTE | 2025-05-29 05:20 | NUR ---
SHIFT SUMMARY NO ACUTE CHANGES OVERNIGHT. REMAINS AFEBRILE. PT SLEPT AT BEDSIDE. PT A&OX4, INDEPENDENT IN ROOM. ABDOMEN SOFT, NON-TENDER, PT REPORTEDLY PASSING 2 FORMED BROWN BMs PER DAY FOR PAST 3 DAYS WITH NO FURTHER RECTAL BLEEDING REPORTED. CONTACT PRECAUTIONS REMAIN IN PLACE FOR STOOL + C. DIFF, NEGATIVE TOXINS, LIKELY COLONIZATION. GIVEN METRONIDAZOLE VIA LAC IV. TOLERATING REGULAR DIET WELL.
[2025-05-29 05:27] LABS: BASOPHILS ABSOLUTE AUTO 0.04 K/mm3 (0.00-0.23); BASOPHILS PERCENT AUTO 0 % (0-2); EOSINOPHILS ABSOLUTE AUTO 0.15 K/mm3 (0.00-0.68); EOSINOPHILS PERCENT AUTO 1 % (0-6); Hematocrit 32.3 % (33.0-51.0); Hemoglobin 11.1 g/dL (11.5-16.0); IMMATURE GRAN ABSOLUTE AUTO 0.43 K/mm3 (0.00-0.10); IMMATURE GRAN PERCENT AUTO 3 % (0-1); LYMPHOCYTES ABSOLUTE AUTO 1.80 K/mm3 (0.84-5.20); LYMPHOCYTES PERCENT AUTO 12 % (21-46); MONOCYTES ABSOLUTE AUTO 0.94 K/mm3 (0.16-1.47); MONOCYTES PERCENT AUTO 6 % (4-13); Mean Corpuscular HGB Conc 34.4 g/dL (31.5-36.5); Mean Corpuscular Volume 94 fL (80-100); NEUTROPHILS ABSOLUTE AUTO 11.68 K/mm3 (1.96-9.15); NEUTROPHILS PERCENT AUTO 78 % (41-73); NRBC ABSOLUTE 0.00 K/mm3 (0.00-0.02); NRBC Auto 0.0 /100 WBC (0.0-0.2); Platelet Count 414 K/mm3 (150-400); RDW Coefficient Variation 14.3 % (11.7-14.2); RDW Standard Deviation 47.7 fL (35.1-46.3)
[2025-05-29 06:59] LABS: C-REACTIVE PROTEIN, EXT RANGE 8.02 mg/dL (0.000-0.300); Magnesium, Blood 2.6 mg/dL (1.6-2.4)
[2025-05-29 07:00] LABS: Alanine Aminotransfer (ALT/SGP 30.0 U/L (12-78); Albumin, Blood 2.6 g/dL (3.4-5.0); Albumin/Globulin Ratio 0.5 (0.8-1.8); Anion Gap 11.0 mmol/L (3-11); Aspartate Aminotrans (AST/SGOT 21.0 U/L (12-37); Bilirubin, Total 0.7 mg/dL (0.1-1.0); Blood Urea Nitrogen 10.0 mg/dL (8-24); CO2, Blood 20.0 mmol/L (21-32); Calcium, Blood 8.6 mg/dL (8.5-10.1); Chloride, Blood 107.0 mmol/L (98-108); Creatinine, Blood 0.65 mg/dL (0.40-1.00); Globulin, Blood 5.0 g/dL (2.2-4.0); Glucose, Blood 96.0 mg/dL (70-99); Phosphorus, Blood 2.9 mg/dL (2.5-4.9); Potassium, Blood 3.9 mmol/L (3.5-5.5); Sodium, Blood 134.0 mmol/L (136-145); Total Protein, Blood 7.6 g/dL (6.4-8.2)
[2025-05-29 07:42] VITALS: BP 102/61
[2025-05-29 15:46] VITALS: BP 109/71
--- NOTE | 2025-05-29 16:25 | NUR ---
SHIFT SUMMARY PT AOX4, COOPERATIVE, ABLE TO MAKE NEEDS KNOWN. PT STILL IN ISO FOR CDIFF POSTIVE. IND IN ROOM, ON ROOM AIR, TOLERATING MEDICATIONS. POSSIBLE DC TOMORROW IF WBC'S CONTINUE TO IMPROVE. NO OTHER ACUTE CHANGES THIS SHIFT. BED IN LOWEST POSITION, CALL LIGHT WITHIN REACH.
[2025-05-29 19:23] VITALS: BP 113/70
[2025-05-29 19:29] LABS: OVA AND PARASITE,FECAL INTERP Negative (Negative)
[2025-05-30 03:21] VITALS: BP 113/70
--- NOTE | 2025-05-30 05:27 | NUR ---
SHOP TECH SUMMARY PT A&OX4, VSS. ABLE TO COMMUNCIATE NEEDS APPROPRIATELY. NO ACUTE CHANGES THIS SHIFT. HAS BEEN ASLEEP FOR MOST OF THE NIGHT. CHEST RISE/RESPIRATIONS NOTED. UP INTERMITTENTLY INDEPENDENTLY TO USE RESTROOM. CONTINUING TO RECEIVE FLAGYL Q8H. BED RAILS UP X 2, BED IN LOWEST POSITION, BED WHEELS LOCKED, PERSONAL BELONGINGS AND CALL LIGHT WITHIN REACH FOR SAFETY.
[2025-05-30 05:48] LABS: BASOPHILS ABSOLUTE AUTO 0.04 K/mm3 (0.00-0.23); BASOPHILS PERCENT AUTO 0 % (0-2); EOSINOPHILS ABSOLUTE AUTO 0.16 K/mm3 (0.00-0.68); EOSINOPHILS PERCENT AUTO 1 % (0-6); Hematocrit 32.5 % (33.0-51.0); Hemoglobin 11.4 g/dL (11.5-16.0); IMMATURE GRAN ABSOLUTE AUTO 0.29 K/mm3 (0.00-0.10); IMMATURE GRAN PERCENT AUTO 3 % (0-1); LYMPHOCYTES ABSOLUTE AUTO 1.71 K/mm3 (0.84-5.20); LYMPHOCYTES PERCENT AUTO 15 % (21-46); MONOCYTES ABSOLUTE AUTO 0.67 K/mm3 (0.16-1.47); MONOCYTES PERCENT AUTO 6 % (4-13); Mean Corpuscular HGB Conc 35.1 g/dL (31.5-36.5); Mean Corpuscular Volume 94 fL (80-100); NEUTROPHILS ABSOLUTE AUTO 8.26 K/mm3 (1.96-9.15); NEUTROPHILS PERCENT AUTO 74 % (41-73); NRBC ABSOLUTE 0.00 K/mm3 (0.00-0.02); NRBC Auto 0.0 /100 WBC (0.0-0.2); Platelet Count 398 K/mm3 (150-400); RDW Coefficient Variation 14.4 % (11.7-14.2); RDW Standard Deviation 47.7 fL (35.1-46.3)
[2025-05-30 06:03] LABS: C-REACTIVE PROTEIN, EXT RANGE 5.32 mg/dL (0.000-0.300)
[2025-05-30 06:05] LABS: Alanine Aminotransfer (ALT/SGP 28.0 U/L (12-78); Albumin, Blood 2.7 g/dL (3.4-5.0); Albumin/Globulin Ratio 0.6 (0.8-1.8); Anion Gap 10.0 mmol/L (3-11); Aspartate Aminotrans (AST/SGOT 24.0 U/L (12-37); Bilirubin, Total 0.5 mg/dL (0.1-1.0); Blood Urea Nitrogen 11.0 mg/dL (8-24); CO2, Blood 21.0 mmol/L (21-32); Calcium, Blood 8.5 mg/dL (8.5-10.1); Chloride, Blood 108.0 mmol/L (98-108); Creatinine, Blood 0.63 mg/dL (0.40-1.00); Ferritin, Serum 1940.0 ng/mL (8-252); Globulin, Blood 4.8 g/dL (2.2-4.0); Glucose, Blood 96.0 mg/dL (70-99); Potassium, Blood 4.0 mmol/L (3.5-5.5); Sodium, Blood 135.0 mmol/L (136-145); Total Iron Binding Capacity 201.0 ug/dL (250-450); Total Protein, Blood 7.5 g/dL (6.4-8.2)
[2025-05-30] MEDS ORDERED: METR500 PO (11:04)
[2025-05-30] MEDS ORDERED: CEFP200 PO (11:04)
[2025-05-30] MEDS ORDERED: VISBIOME 112.51 EACH PO (11:05)
[2025-05-30] MEDS ORDERED: ACET500 PO (11:06)
--- NOTE | 2025-05-30 11:42 | NUR ---
Patient discharged home with spouse. All belongings in patient possession at time of discharge. Education/instruction discussed with patient and spouse and all questions answered prior to leaving. Patient IV removed by MICROBIOLOGY LAB ASSISTANT without difficulty and intact. Patient transported via wheelchair to front entrance.
[2025-05-30 17:55] LABS: HEPATITIS B SURFACE ANTIBODY <3.10 IU/L; HEPATITIS BE ANTIBODY Positive (Negative); HEPATITIS BE ANTIGEN Negative (Negative)
== END 2025-05-30 11:30 | disposition home or self-care (01) | DRG 871 ==
LOC: ER 20:30 → PCU 05-21 01:41 → ERHOLD 05-21 01:41 → MEDS 05-21 01:41 → PCU 05-21 03:27 → MEDS 05-25 17:49
PROVIDERS: Emergency Medicine; Family Medicine; Hospitalist; Internal Medicine; Internal Medicine Gastroenterology; Student in an Organized Health Care Education/Training Program; ADMIT Student in an Organized Health Care Education/Training Program
PROC: 3E03329 Introduction of Other Anti-infective into Peripheral Vein, Percutaneous Approach (ICD-10-PCS; 2025-05-21)
PROC: 0DJD8ZZ Inspection of Lower Intestinal Tract, Via Natural or Artificial Opening Endoscopic (ICD-10-PCS; principal; 2025-05-24 17:00)
DX: A41.59 Other Gram-negative sepsis (principal); A06.4 Amebic liver abscess; K92.1 Melena; B18.1 Chronic viral hepatitis B without delta-agent; E87.1 Hypo-osmolality and hyponatremia; K21.9 Gastro-esophageal reflux disease without esophagitis; F17.210 Nicotine dependence, cigarettes, uncomplicated; E87.6 Hypokalemia; K64.8 Other hemorrhoids; D50.9 Iron deficiency anemia, unspecified; Z90.49 Acquired absence of other specified parts of digestive tract; Z90.710 Acquired absence of both cervix and uterus; Z88.5 Allergy status to narcotic agent; Z88.6 Allergy status to analgesic agent; Z87.19 Personal history of other diseases of the digestive system; Z22.8 Carrier of other infectious diseases
CPT/HCPCS: 36415; 74177; 74183; 76705; 80053; 80074; 80202; 81001; 82105; 82272; 82728; 82947; 83540; 83550; 83605; 83690; 83735; 84100; 85014; 85018; 85025; 85610; 85651; 86140; 86301; 86707; 86850; 86900; 86901; 87040; 87077; 87177; 87186; 87207; 87209; 87324; 87340; 87350; 87507; 93005; 93010; 94640; 94664; 94760; 94762; 96365-59; 96366; 96367; 96375; 99285-25; A9270; A9581; J0696; J1644; J2250; J2543; J2704; J2916; J3010; J3373; J3480; J7030; J7040; J7050; J7120; Q9967